=== PATIENT | female | born 1945 | race Caucasian/White ===

== ENCOUNTER 2023-12-22 10:34 | Outpatient (RCR) | payer OTHER, SELFPAY | END 2023-12-22 23:59 | disposition home or self-care (01) | LOC: RPT 10:34 | PROVIDERS: ATTENDING PHYSICIAN Physician Assistant; FAMILY PHYSICIAN Physician Assistant | DX: M62.89 Other specified disorders of muscle (principal); Z73.6 Limitation of activities due to disability | CPT/HCPCS: 97161; 97530 ==

== ENCOUNTER 2024-01-15 15:55 | Outpatient (RCR) | payer OTHER, SELFPAY | END 2024-01-15 23:59 | disposition home or self-care (01) | LOC: RPT 15:55 | PROVIDERS: ATTENDING PHYSICIAN Physician Assistant; FAMILY PHYSICIAN Physician Assistant | DX: M62.89 Other specified disorders of muscle (principal); Z73.6 Limitation of activities due to disability | CPT/HCPCS: 97110 ==

== ENCOUNTER → 2024-04-08 14:52 | Outpatient (REF) | payer OTHER, SELFPAY | LOC: WDC 14:52 | PROVIDERS: ATTENDING PHYSICIAN Physician Assistant | DX: Z12.31 Encounter for screening mammogram for malignant neoplasm of breast (principal) | CPT/HCPCS: 77063; 77067 ==

== ENCOUNTER → 2025-04-11 12:53 | Outpatient (REF) | payer OTHER, SELFPAY | LOC: WDC 12:53 | PROVIDERS: ATTENDING PHYSICIAN Physician Assistant | DX: Z12.31 Encounter for screening mammogram for malignant neoplasm of breast (principal) | CPT/HCPCS: 77063; 77067 ==